=== PATIENT | male | born 1965 | race Caucasian/White ===

== ENCOUNTER 2023-03-01 16:10 | Emergency (ER) | payer BC ==
[2023-03-01 17:06] LABS: #Basophils 0.1 10x3/uL (0.0-0.2); #Eosinphils 0.3 10x3/uL (0.0-0.5); #Monocytes 0.8 10x3/uL (0.0-1.1); #Neutrophils 5.2 10x3/uL (1.5-8.4); %Basophils 0.5 % (0.0-2.0); %Eosinophils 3.7 % (0.0-6.0); %Lymphocytes 30.5 % (18.0-47.0); %Monocytes 8.4 % (0.0-10.0); %Neutrophils 56.5 % (40.0-75.0); Hemoglobin 14.6 g/dL (13.5-17.5); Mean Corpuscular Hemoglobin 31.5 pg (27.0-33.0); Mean Corpuscular Volume 89.9 fl (81.2-95.1); Mean Platelet Volume 8.4 fl (7.4-10.4); Platelet Count 272 10x3/uL (150-450); RBC Distribution Width 12.9 % (11.5-14.5); Red Blood Cell (RBC) Count 4.64 10x6/uL (4.32-5.72); White Blood Cell (WBC) Count 9.2 10x3/uL (3.5-10.5)
[2023-03-01 17:22] LABS: ALT (SGPT) 31 U/L (8-55); AST (SGOT) 23 U/L (5-34); Albumin 4.1 g/dL (3.5-5.0); Alkaline Phosphatase 35 U/L (40-110); Anion Gap 14 mmol/L (10-20); BUN (Urea Nitrogen) 25 mg/dL (8.4-25.7); Bilirubin, Total 0.3 mg/dL (0.2-1.2); Calc. Creatinine Clearance 0 mL/min (70-130); Calcium 9.5 mg/dL (7.8-10.44); Carbon Dioxide 27 mmol/L (22-29); Chloride 102 mmol/L (98-107); Estimated GFR 95; Glucose 150 mg/dL (70-105); Lipase 22 U/L (8-78); Potassium 4.5 mmol/L (3.5-5.1); Protein, Total 7.1 g/dL (6.0-8.3); Sodium 138 mmol/L (136-145)
== END 2023-03-01 18:47 | disposition home or self-care (01) ==
LOC: CSHERS 16:10
DX: R07.89 Other chest pain (principal); I10 Essential (primary) hypertension; E78.5 Hyperlipidemia, unspecified
CPT/HCPCS: 36415; 71045; 80053; 83690; 84484; 85025; 93005

== ENCOUNTER 2025-07-15 13:05 | Inpatient (IN) | payer BC, OTHER ==
[2025-07-15] MEDS ORDERED: cefTRIAXone (ROCEPHIN) 2 GM VIAL ONE (15:03)
[2025-07-15 15:26] LABS: #Basophils 0.03 10x3/uL (0.0-0.2); #Eosinophils 0.12 10x3/uL (0.0-0.5); #Monocytes 0.70 10x3/uL (0.0-1.1); #Neutrophils 4.65 10x3/uL (1.5-8.4); %Basophils 0.4 % (0.0-2.0); %Eosinophils 1.5 % (0.0-6.0); %Lymphocytes 29.2 % (18.0-47.0); %Monocytes 9.0 % (0.0-10.0); %Neutrophils 59.5 % (40.0-75.0); Hematocrit 43.6 % (38.8-50.0); Hemoglobin 15.0 g/dL (13.5-17.5); Mean Corpuscular Hemoglobin 30.9 pg (27.0-33.0); Mean Corpuscular Volume 89.9 fL (81.2-95.1); Platelet Count 263 10x3/uL (150-450); Red Blood Cell (RBC) Count 4.85 10x6/uL (4.32-5.72); White Blood Cell (WBC) Count 7.81 10x3/uL (3.5-10.5)
[2025-07-15 15:51] LABS: ALT (SGPT) 32 U/L (Less than 45); AST (SGOT) 28 U/L (11-34); Albumin 4.1 g/dL (3.1-4.5); Alkaline Phosphatase 41 U/L (40-110); Anion Gap 14 mmol/L (10-20); BUN (Urea Nitrogen) 21 mg/dL (8.4-25.7); Bilirubin, Total 0.5 mg/dL (0.3-1.2); Calc. Creatinine Clearance 0 mL/min (70-130); Calcium 9.3 mg/dL (7.8-10.44); Carbon Dioxide 23 mmol/L (22-29); Chloride 105 mmol/L (98-107); Globulin 3.2 g/dL (2.4-3.5); Glucose 103 mg/dL (70-105); Potassium 3.9 mmol/L (3.5-5.1); Sodium 138 mmol/L (136-145); Troponin I 0.014 ng/mL (< 0.028)
[2025-07-15] MEDS ORDERED: Calcium Carbonate 500 MG ChewTAB PO PRN (18:04)
[2025-07-15] MEDS ORDERED: Melatonin 3 MG TAB PO PRN (18:04)
[2025-07-15] MEDS ORDERED: Ondansetron PF 4 MG/2 ML Vial IVP PRN (18:04)
[2025-07-15] MEDS ORDERED: Acetaminophen 325 MG TAB PO PRN (18:04)
[2025-07-15] MEDS ORDERED: Dextrose 50% Abboject 50 ML SYRINGE SLOW IVP PRN (18:04)
[2025-07-15] MEDS ORDERED: Glucagon 1 MG/ML KIT IM PRN (18:04)
[2025-07-15] MEDS ORDERED: Electrolyte Replacement Protocol 1 EACH FS SCH (18:15)
[2025-07-15] MEDS: Apixaban 5 MG TAB PO SCH (21:43)
[2025-07-15 21:53] VITALS: BMI 39.6
[2025-07-15] MEDS: Colestipol 1 GM TAB PO SCH (23:27)
[2025-07-16 04:23] LABS: #Basophils Less than 0.03 10x3/uL (0.0-0.2); #Eosinophils 0.17 10x3/uL (0.0-0.5); #Monocytes 0.82 10x3/uL (0.0-1.1); #Neutrophils 3.75 10x3/uL (1.5-8.4); %Basophils 0.3 % (0.0-2.0); %Eosinophils 2.5 % (0.0-6.0); %Lymphocytes 30.8 % (18.0-47.0); %Monocytes 11.8 % (0.0-10.0); %Neutrophils 54.2 % (40.0-75.0); Hematocrit 41.1 % (38.8-50.0); Hemoglobin 13.8 g/dL (13.5-17.5); Mean Corpuscular Hemoglobin 30.5 pg (27.0-33.0); Mean Corpuscular Volume 90.7 fL (81.2-95.1); Platelet Count 250 10x3/uL (150-450); Red Blood Cell (RBC) Count 4.53 10x6/uL (4.32-5.72); White Blood Cell (WBC) Count 6.92 10x3/uL (3.5-10.5)
[2025-07-16 04:42] LABS: Anion Gap 13 mmol/L (10-20); BUN (Urea Nitrogen) 19 mg/dL (8.4-25.7); Calc. Creatinine Clearance 213 mL/min (70-130); Calcium 9.1 mg/dL (7.8-10.44); Carbon Dioxide 25 mmol/L (22-29); Chloride 107 mmol/L (98-107); Glucose 105 mg/dL (70-105); Potassium 3.6 mmol/L (3.5-5.1); Sodium 141 mmol/L (136-145)
[2025-07-16] MEDS: Lisinopril 10 MG TAB PO SCH (08:53)
[2025-07-16] MEDS: Metoprolol Succinate XL 50 MG ER.TAB PO SCH (08:53)
[2025-07-16] MEDS: Apixaban 5 MG TAB PO SCH (08:54)
[2025-07-16] MEDS: BuPROPion XL 150 MG ER.TAB PO SCH (08:54)
[2025-07-16] MEDS: cefTRIAXone\\ROCEPHIN 1 GM in Sodium Chloride 0.9% 100 ML IVPB SCH (15:11)
[2025-07-17 05:44] LABS: #Basophils 0.03 10x3/uL (0.0-0.2); #Eosinophils 0.17 10x3/uL (0.0-0.5); #Monocytes 0.69 10x3/uL (0.0-1.1); #Neutrophils 3.16 10x3/uL (1.5-8.4); %Basophils 0.5 % (0.0-2.0); %Eosinophils 2.8 % (0.0-6.0); %Lymphocytes 32.1 % (18.0-47.0); %Monocytes 11.5 % (0.0-10.0); %Neutrophils 52.9 % (40.0-75.0); Hematocrit 41.7 % (38.8-50.0); Hemoglobin 14.3 g/dL (13.5-17.5); Mean Corpuscular Hemoglobin 30.8 pg (27.0-33.0); Mean Corpuscular Volume 89.7 fL (81.2-95.1); Platelet Count 271 10x3/uL (150-450); Red Blood Cell (RBC) Count 4.65 10x6/uL (4.32-5.72); White Blood Cell (WBC) Count 5.98 10x3/uL (3.5-10.5)
[2025-07-17 13:59] VITALS: BP 146/70; TEMP 97.9
== END 2025-07-17 15:55 | disposition home or self-care (01) | DRG 603 ==
LOC: CSHERS 13:05 → CSHERHOLD 17:03 → CSHTELE 18:46 → OBSVTOIN 07-16 15:17
PROVIDERS: ADMIT Family Medicine; ATTEND Family Medicine
PROC: 3E03329 Introduction of Other Anti-infective into Peripheral Vein, Percutaneous Approach (ICD-10-PCS; 2025-07-15)
PROC: 5A09357 Assistance with Respiratory Ventilation, Less than 24 Consecutive Hours, Continuous Positive Airway Pressure (ICD-10-PCS; principal; 2025-07-16)
DX: L03.115 Cellulitis of right lower limb (principal); I10 Essential (primary) hypertension; E78.5 Hyperlipidemia, unspecified; I25.10 Atherosclerotic heart disease of native coronary artery without angina pectoris; E03.9 Hypothyroidism, unspecified; E11.9 Type 2 diabetes mellitus without complications; F41.9 Anxiety disorder, unspecified; K21.9 Gastro-esophageal reflux disease without esophagitis; Z98.890 Other specified postprocedural states; I48.0 Paroxysmal atrial fibrillation; W19.XXXA Unspecified fall, initial encounter; Z79.899 Other long term (current) drug therapy; Z79.890 Hormone replacement therapy
CPT/HCPCS: 36415; 36416; 80048; 80053; 83605; 84484; 85025; 87040; 94760; 96374; 96376; G0378; J0696